=== PATIENT | male | born 1960 ===

== ENCOUNTER 2020-05-25 11:05 | Emergency (ER) | payer OTHER, SELFPAY ==
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
[2020-05-25 11:36] VITALS: BP 138/81; PULSE 68; RESP 20; TEMP 36.6; O2SAT 97
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
== END 2020-05-25 12:32 | disposition home or self-care (01) ==
PROVIDERS: Emergency Provider Nurse Practitioner; PCP Family Medicine
DX: S33.5XXA Sprain of ligaments of lumbar spine, initial encounter (principal); V49.40XA Driver injured in collision with unspecified motor vehicles in traffic accident, initial encounter; S16.1XXA Strain of muscle, fascia and tendon at neck level, initial encounter
CPT/HCPCS: 72040; 72100; 99213; G0463

== ENCOUNTER → 2023-03-28 11:08 | Outpatient (CLI) | payer OTHER, SELFPAY ==
--- NOTE | ~2023-03-28 | XR_ITS ---
EXAMINATION: XR chest 2V 03/28/2023 11:14 INDICATION: Sarcoidosis PROCEDURE: 2 view chest COMPARISON: 09/23/2016 FINDINGS: The lungs are clear. The cardiomediastinal silhouette is within normal limits. There are no pleural effusions. There is no pneumothorax suspected. IMPRESSION: 1: NO ACUTE CARDIOPULMONARY DISEASE. Reviewed, dictated and finalized at location B. ITY ASSOCIATE
== END ==
PROVIDERS: PCP Physician Assistant; Visit Provider Nurse Practitioner Family
DX: D86.9 Sarcoidosis, unspecified (principal)
CPT/HCPCS: 71046